=== PATIENT | male | born 1950 | race Asian ===

== ENCOUNTER 2020-04-28 19:22 | Emergency (ER) | payer MEDICARE ==
[~2020-04-28] VITALS: Ht 167.6 cm; Wt 81.7 kg
--- NOTE | ~2020-04-28 | EKG ---
[facility] [address] [facility] [address] [place], [place] [address] Draft EK completed, results pending confirmation PATIENT NAME: GONZALEZ STEVENS Electrocardiogram DATE OF : 50 PHYSICIAN: PRELIMINARY REPORT #: [id number] REPORT IS CONFIDENTIAL AND NOT TO BE RELEASED WITHOUT AUTHORIZATION
--- OUTSIDE RECORDS SUMMARY | ~2020-04-28 | XMS | Encounter Summary ---
Demographics + + + | Address | [address] | | | [place] [address] | + + + | Home Phone | | + + + | Preferred Language | Unknown | + + + | Marital Status | | + + + | Confucianism Affiliation | Unknown | + + + | Race | Unknown | + + + | Ethnic Group | Other Race | + + + Author + + + | Author | [facility] | + + + | Organization | [facility] | + + + | Address | Unknown | + + + | Phone | Unavailable | + + + Care Team Providers + +------+ + | Care Lead Game Designer Name | Role | Phone | + +------+ + PCP | Unavailable | + +------+ + Encounter Details +--------+ + + + + | Date | Type | Department | Care Team | Description | +--------+ + + + + | 11/25/ | Documentati | [facility] | Unknown . | | | 2019 | on | Department | | | +--------+ + + + + Social History + +-------+ +--------+------+ | Tobacco Use | Types | Packs/Day | Years | Date | | | | | Used | | + +-------+ +--------+------+ | Never Assessed | | | | | + +-------+ +--------+------+ + + + | Sex Assigned at | Date Recorded | | | | + + + | Not on file | | + + + + + + + | Job Start Date | Occupation | Industry | + + + + | Not on file | Not on file | Not on file | + + + + + + + + | Travel History | Travel Start | Travel End | + + + + + + | No recent travel history available. | + + documented as of this encounter Plan of Treatment Not on filedocumented as of this encounter Visit Diagnoses Not on filedocumented in this encounter"
--- OUTSIDE RECORDS SUMMARY | ~2020-04-28 | XMS | Encounter Summary ---
Demographics + + + | Address | [address] | | | [place] [address] | + + + | Home Phone | | + + + | Preferred Language | Unknown | + + + | Marital Status | | + + + | Pentecostal Affiliation | Unknown | + + + | Race | Unknown | + + + | Ethnic Group | Other Race | + + + Author + + + | Author | [facility] | + + + | Organization | [facility] | + + + | Address | Unknown | + + + | Phone | Unavailable | + + + Care Team Providers + +------+ + | Care Utilities Operator Name | Role | Phone | + +------+ + PCP | Unavailable | + +------+ + Encounter Details +--------+ + + + + | Date | Type | Department | Care Team | Description | +--------+ + + + + | 01/01/ | Documentati | Dermatology | Unknown . | | | 2017 | on | Medical at [facility] | | | | | | [facility] | | | | | | for Health and | | | | | | Healing, [address], | | | | | | 16th Floor | | | | | | [place], [place] | | | | | | [address] | | | | | | [phone] | | | +--------+ + + + [...]
--- OUTSIDE RECORDS SUMMARY | ~2020-04-28 | XMS | Clinical Summary ---
Demographics + + + | Address | [address] | | | [place] [address] | + + + | Home Phone | | + + + | Preferred Language | Unknown | + + + | Marital Status | | + + + | Gnosticist Affiliation | Unknown | + + + | Race | Unknown | + + + | Ethnic Group | Other Race | + + + Author + + + | Author | [facility] | + + + | Organization | [facility] | + + + | Address | Unknown | + + + | Phone | Unavailable | + + + Care Team Providers + +------+ + | Care Baseball Inspector And Repairer Name | Role | Phone | + +------+ + PCP | Unavailable | + +------+ + Source Comments JOSE is fully live on both [facility] Ambulatory and [facility] InPatient.[facility] Allergies Not on File Medications Not on file Active Problems Not on file Social History + +-------+ +--------+------+ | Tobacco [...] recent travel history available. | + + Last Filed Vital Signs Not on file Plan of Treatment Not on file Results Not on filefrom Last 3 Months Insurance + +--------+ +--------+ + +--------+ | Payer | Benefi | Subscriber | Effect | Phone | Address | Type | | | t Plan | ID | trini | | | | | | / | | Dates | | | | | | Group | | | | | | + +--------+ +--------+ + +--------+ | MEDICARE | MEDICA | xxxxxxxxxxx | 05/17/20 | [phone] | [address] | Medica | | | RE A & | | 15-Pre | 1 | [phone] | re | | | B | | sent | | [place] | | | | | | | | [address] | | + +--------+ +--------+ + +--------+ | [employer] | AARP | xxxxxxxxxxx | Effect | [phone] | [address] | Indemn | | RETIRED PEOPLE | | | trini | 9 | [phone] | ity | | | | | for | | [place] | | | | | | all | | [phone] | | | | | | dates | | | | + +--------+ +--------+ + +--------+ + +--------+ +--------+ + + | Guarantor Name | Accoun | Relation to | Date | Phone | Billing Address | | | t Type | Patient | of | | | | | | | | | | + +--------+ +--------+ + + | Kelvin Tovar T | Person | Self | [birth year] | [address] | | | al/Fam | | 1950 | [phone] | [place] | | | ozzy | | | 1 (Home) | [address] | + +--------+ +--------+ + +"
--- OUTSIDE RECORDS SUMMARY | ~2020-04-28 | XMS | Encounter Summary ---
Demographics + + + | Address | [address] | | | [place] [address] | + + + | Home Phone | | + + + | Preferred Language | Unknown | + + + | Marital Status | | + + + | Buddhism Affiliation | Unknown | + + + | Race | Unknown | + + + | Ethnic Group | Other Race | + + + Author + + + | Author | [facility] | + + + | Organization | [facility] | + + + | Address | Unknown | + + + | Phone | Unavailable | + + + Care Team Providers + +------+ + | Care Evaporator Name | Role | Phone | + +------+ + PCP | Unavailable | + +------+ + Encounter Details +--------+ + + + + | Date | Type | Department | Care Team | Description | +--------+ + + + + | 08/14/ | Hospital | Dermatopathology | | | | 2016 | Encounter | [address] | | | | | | Mailcode: CH16D | | | | | | [facility] | | | | | | and Healing, | | | | | | [address], [address]th | | | | | | Floor [place], [place] | | | | | | [address] | | | | | | [phone] | | | +--------+ + + + [...] Not on filedocumented as of this encounter Procedures + +--------+ + + + | Procedure Name | Priori | Date/Time | Associated Diagnosis | Comments | | | ty | | | | + +--------+ + + + | DERM PATHOLOGY | Routin | 08/14/2016 | Melanocytic nevi | Results for this | | | e | | of left upper limb, | procedure are in the | | | | | including shoulder | results section. | + +--------+ + + + documented in this encounter Results DERM PATHOLOGY (08/14/2016) + + + + + + | Component | Value | Ref Range | Performed | Pathologist | | | | | At | Signature | + + + + + + | DERMATOPATH | SOURCE OF SPECIMEN:A Lt. | | [facility] | | | OLOGY(WET | upper arm, shave biopsy | | DERMATOPATH | | | MNT) | CLINICAL | | OLOGY | | | | DESCRIPTION:3 x 3 | | | | | | heavily pigmented | | | | | | papule; r/o dysplastic | | | | | | nevus. GROSS | | | | | | DESCRIPTION:Received in | | | | | | formalin is a specimen | | | | | | labeled Kelvin Tovar:A: | | | | | | Specimen is labeled "L | | | | | | upper arm" and consists | | | | | | of an irregular shave | | | | | | ofpatchy | | | | | | mlbms-[id number]-xdubk skin, | | | | | | 7c4p1cm. The surgical | | | | | | margin is inked | | | | | | black;the tissue is | | | | | | bisected, and entirely | | | | | | submitted in cassette | | | | | | A1. MICROSCOPIC | | | | | | DESCRIPTION:There is a | | | | | | moderately broad, | | | | | | well-circumscribed, and | | | | | | slightly | | | | | | asymmetriccompound | | | | | | melanocytic neoplasm | | | | | | characterized by round | | | | | | to oval nests and | | | | | | anincrease in single | | | | | | melanocytes distributed | | | | | | somewhat irregularly | | | | | | along thebasal layer, | | | | | | with a few single | | | | | | melanocytes extending | | | | | | focally above it.Nests | | | | | | of melanocytes are | | | | | | present in the upper | | | | | | dermis amidst a | | | | | | sparselymphocytic | | | | | | infiltrate. Most of the | | | | | | melanocytic nuclei are | | | | | | round to ovaland the | | | | | | cells contain | | | | | | amphophilic cytoplasm | | | | | | with melanin. | | | | | | DIAGNOSIS:MELANOCYTIC | | | | | | NEVUS, COMPOUND TYPE | | | | | | WITH UNUSUAL FEATURES. | | | | | | NOTE: Asymmetry | | | | | | and rare spinous layer | | | | | | melanocytes are unusual | | | | | | findings inthe left | | | | | | upper arm melanocytic | | | | | | nevus. The nevus extends | | | | | | to the deepsurgical | | | | | | margin of the shave | | | | | | specimen and in light of | | | | | | the | | | | | | unconventionalfindings | | | | | | additional conservative | | | | | | treatment to assure | | | | | | complete removal wouldbe | | | | | | prudent. My | | | | | | electronic signature | | | | | | indicates that I have | | | | | | personally reviewed | | | | | | alldiagnostic slides, | | | | | | the gross and/or | | | | | | microscopic portion of | | | | | | thisreport and | | | | | | formulated the final | | | | | | diagnosis. | | | | | | Rendering Diagnostician: | | | | | | Ronaldo Balderrama | | | | | | MJudyPathologistElectroni | | | | | | ken Signed 08/16/2016 | | | | | | 3:37PM | | | | + + + + + + + + | Specimen | + + | | + + + + + | Narrative | Performed At | + + + | | | + + + + + + + + | Performing | Address | City/State/Zipcode | Phone Number | | Organization | | | | + + + + + | [facility] | Mailcode CH5D [address] | [place] [address] | | | DERMATOPATHOLOGY | [address] | | | + + + + + | [facility] | Mailcode CH5D [address] | [place] [address] | | | DERMATOPATHOLOGY | [address] | | | + + + + + documented in this encounter Visit Diagnoses + + | Diagnosis | + + | Melanocytic nevi of left upper limb, including shoulder | + + documented in this encounter
--- OUTSIDE RECORDS SUMMARY | ~2020-04-28 | XMS | Encounter Summary ---
Demographics + + + | Address | [address] | | | [place] [address] | + + + | Home Phone | | + + + | Preferred Language | Unknown | + + + | Marital Status | | + + + | Mosque Affiliation | Unknown | + + + | Race | Unknown | + + + | Ethnic Group | Other Race | + + + Author + + + | Author | [facility] | + + + | Organization | [facility] | + + + | Address | Unknown | + + + | Phone | Unavailable | + + + Care Team Providers + +------+ + | Care Coal Hauler Operator Name | Role | Phone | + +------+ + PCP | Unavailable | + +------+ + Encounter Details +--------+ + + + + | Date | Type | Department | Care Team | Description | +--------+ + + + + | 11/14/ | Lab | Dermatopathology | Carol Ann Jaimes MD | | | 2018 | Requisition | [address] | [facility] | | | | | Mailcode: CH16D | Dermatology [address] | | | | | [facility] | [place], | | | | | and [facility], | [place] [address] | | | | | [place] [address] | [phone] | | | | | Floor [place], [place] | | | | | | [address] | | | | | | [phone] | | | +--------+ + + + [...] + | DERM PATHOLOGY | Routin | 11/13/2017 | Basal cell | Results for this | | | e | | carcinoma of skin of | procedure are in the | | | | | scalp and neck | results section. | + +--------+ + + + documented in this encounter Results DERM PATHOLOGY (11/13/2017) + + + + + + | Component | Value | Ref Range | Performed | Pathologist | | | | | At | Signature | + + + + + + | Clinical | R/o residual BCC; | | [facility] | | | History | [id number]. | | DERMATOPATH | | | | | | OLOGY | | + + + + + + | Final | SCAR.(RIGHT OCCIPITAL | | [facility] | Electronically | | Pathologic | SCALP)NOTE: No residual | | DERMATOPATH | signed by | | Diagnosis | basal cell carcinoma is | | OLOGY | Ronaldo B | | | seen in these sections; | | | MD [place] on | | | the right occipital | | | 11/15/2017 at | | | scalp basal cell | | | 2:38 PM | | | carcinoma is completely | | | | | | excised. | | | | + + + + + + | Gross | Received in formalin is | | [facility] | | | Description | a specimen labeled with | | DERMATOPATH | | | | the patient's name:A: | | OLOGY | | | | Specimen is labeled "Rt | | | | | | occipital scalp" and | | | | | | consists of an | | | | | | elliptical excision of | | | | | | torres-brown skin, 22 x 8 x | | | | | | 5 mm. The surgical | | | | | | margin is inked blue; | | | | | | the tissue is serially | | | | | | sectioned, and entirely | | | | | | submitted in cassette | | | | | | A1. | | | | + + + + + + | Microscopic | There are an increased | | [facility] | | | | number of collagen | | DERMATOPATH | | | Description | bundles with fibrocytes | | OLOGY | | | | arranged parallel to the | | | | | | skin surface with | | | | | | vertically oriented | | | | | | blood vessels. | | | | + + + + + + + + | Specimen | + + | Biopsy | + + + + + + + | Performing | Address | City/State/Zipcode | Phone Number | | Organization | | | | + + + + + | [facility] | Mailcode CH5D [address] | [place] [address] | | | DERMATOPATHOLOGY | [address] | | | + + + + + | [facility] | Mailcode CH5D [address] | [place] [address] | | | DERMATOPATHOLOGY | [address] | | | + + + + + documented in this encounter Visit Diagnoses + + | Diagnosis | + + | Basal cell carcinoma of skin of scalp and neck Basal cell carcinoma of scalp and skin | | of neck | + + documented in this encounter
--- OUTSIDE RECORDS SUMMARY | ~2020-04-28 | XMS | Encounter Summary ---
Demographics + + + | Address | [address] | | | [place] [address] | + + + | Home Phone | | + + + | Preferred Language | Unknown | + + + | Marital Status | | + + + | Faith Affiliation | Unknown | + + + | Race | Unknown | + + + | Ethnic Group | Other Race | + + + Author + + + | Author | [facility] | + + + | Organization | [facility] | + + + | Address | Unknown | + + + | Phone | Unavailable | + + + Care Team Providers + +------+ + | Care Industrial Relations Manager Name | Role | Phone | + +------+ + PCP | Unavailable | + +------+ + Encounter Details +--------+ + + + + | Date | Type | Department | Care Team | Description | +--------+ + + + + | 08/30/ | Hospital | Dermatopathology | | | | 2017 | Encounter | [address] | | | | | | Mailcode: CH16D | | | | | | [facility] | | | | | | and Healing, | | | | | | [address], [address]th | | | | | | Floor [place], [place] | | | | | | [address] | | | | | | [phone] | | | +--------+ + + + [...] + | DERM PATHOLOGY | Routin | 08/30/2017 | Other melanin | Results for this | | | e | | hyperpigmentation | procedure are in the | | | | | Basal cell carcinoma | results section. | | | | | of skin of scalp | | | | | | and neck | | + +--------+ + + + documented in this encounter Results DERM PATHOLOGY (08/30/2017) + + + + + + | Component | Value | Ref Range | Performed | Pathologist | | | | | At | Signature | + + + + + + | DERMATOPATH | SOURCE OF SPECIMEN:A Rt. | | [facility] | | | OLOGY(WET | dorsal arm, shave | | DERMATOPATH | | | MNT) | biopsySOURCE OF | | OLOGY | | | | SPECIMEN:B Rt. occipital | | | | | | scalp, shave biopsy | | | | | | CLINICAL | | | | | | DESCRIPTION:A: 3 x 4 mm | | | | | | hyperpigmented; r/o | | | | | | lentigo vs other.B: 3 x | | | | | | 3 mm pink papule; r/o | | | | | | NMSC. GROSS | | | | | | DESCRIPTION:Received in | | | | | | formalin are two | | | | | | specimens labeled Oyama, | | | | | | Kelvin:A: Specimen is | | | | | | labeled "Rt dorsal arm" | | | | | | and consists of an | | | | | | irregular shaveof | | | | | | papular patchy | | | | | | gyrnu-rdx-mdhqr skin, | | | | | | [id number]. The surgical | | | | | | margin isinked blue; the | | | | | | tissue is bisected, and | | | | | | entirely submitted in | | | | | | cassette A1.B: Specimen | | | | | | is labeled "Rt occipital | | | | | | scalp" and consists of | | | | | | an irregularshave of | | | | | | papular white-torres skin, | | | | | | [id number]. The surgical | | | | | | margin is inkedblue; the | | | | | | tissue is bisected, and | | | | | | entirely submitted in | | | | | | cassette B1. | | | | | | MICROSCOPIC | | | | | | DESCRIPTION:In the right | | | | | | dorsal arm, shave | | | | | | biopsy there is slight | | | | | | hyperplasia of therete | | | | | | ridges with | | | | | | hyperpigmentation along | | | | | | the basal layer and | | | | | | solarelastosis. | | | | | | Immunohistochemical | | | | | | staining for melan-A is | | | | | | obtained and showsno | | | | | | melanocytic neoplasm. | | | | | | In the right | | | | | | occipital scalp, shave | | | | | | biopsy there are | | | | | | aggregates of cellswith | | | | | | hyperchromatic nuclei, | | | | | | scant cytoplasm and | | | | | | palisading of | | | | | | theperipheral nuclei. | | | | | | DIAGNOSIS:A: SOLAR | | | | | | LENTIGO.(RIGHT DORSAL | | | | | | ARM) NOTE: No | | | | | | definitive melanocytic | | | | | | neoplasm is seen in | | | | | | these sections. B: | | | | | | BASAL CELL CARCINOMA, | | | | | | NODULAR PATTERN.(RIGHT | | | | | | OCCIPITAL SCALP) | | | | | | NOTE: The right | | | | | | occipital scalp BASAL | | | | | | CELL CARCINOMA extends | | | | | | to the deepsurgical | | | | | | margin of the shave | | | | | | specimen and additional | | | | | | treatment to | | | | | | ensurecomplete removal | | | | | | would be prudent. | | | | | | VBK:jb09/04/17 My | | | | | | [...] diagnosis. | | | | | | Electronically signed | | | | | | by: Ronaldo Balderrama | | | | | | M.EmiliePathologistDate | | | | | | Completed: 09/05/2017 | | | | | | 12:58PM | | | | + + + [...] + + + + | [facility] | [address] | [place] [address] | | | DERMATOPATHOLOGY | [address] | | | + + + + + | [facility] | [address] | [place] [address] | | | DERMATOPATHOLOGY | [address] | | | + + + + + documented in this encounter Visit Diagnoses + + | Diagnosis | + + | Other melanin hyperpigmentation | + + | Basal cell carcinoma of skin of scalp and neck Basal cell carcinoma of scalp and skin | | of neck | + + documented in this encounter
--- OUTSIDE RECORDS SUMMARY | ~2020-04-28 | XMS | Encounter Summary ---
Demographics + + + | Address | [address] | | | [place] [address] | + + + | Home Phone | | + + + | Preferred Language | Unknown | + + + | Marital Status | | + + + | Mormon Affiliation | Unknown | + + + | Race | Unknown | + + + | Ethnic Group | Other Race | + + + Author + + + | Author | [facility] | + + + | Organization | [facility] | + + + | Address | Unknown | + + + | Phone | Unavailable | + + + Care Team Providers + +------+ + | Care Wire Drawer Name | Role | Phone | + [...]
--- OUTSIDE RECORDS SUMMARY | ~2020-04-28 | XMS | Encounter Summary ---
Demographics + + + | Address | [address] | | | [place] [address] | + + + | Home Phone | | + + + | Preferred Language | Unknown | + + + | Marital Status | | + + + | Samaritan Affiliation | Unknown | + + + | Race | Unknown | + + + | Ethnic Group | Other Race | + + + Author + + + | Author | [facility] | + + + | Organization | [facility] | + + + | Address | Unknown | + + + | Phone | Unavailable | + + + Care Team Providers + +------+ + | Care Church Organist Name | Role | Phone | + +------+ + PCP | Unavailable | + +------+ + Encounter Details +--------+ + + + + | Date | Type | Department | Care Team | Description | +--------+ + + + + | 11/14/ | Lab | Dermatopathology | Carol Ann Jaimes MD | | | 2018 | Requisition | [address] | [facility] | | | | | Mailcode: CH16D | Dermatology [address] | | | | | [facility] | [place] [place], | | | | | and [facility], | [place] [address] | | | | | [place] [address] | [phone] | | | | | Floor [place], [place] | | | | | | [address] | | | | | | [phone] | | | +--------+ + + + [...] | [facility] | | | History | [id number]. | | DERMATOPATH | | | | [...] [facility] | Mailcode CH5D [address] | [place] [address] | | | DERMATOPATHOLOGY | [address] | | | + + + + + | [facility] | Mailcode CH5D [address] | [place] [address] | | | DERMATOPATHOLOGY | [address] | | | + + + + + documented in this encounter Visit Diagnoses + + | Diagnosis | + + | Basal cell carcinoma of skin of scalp and neck Basal cell carcinoma of scalp and skin | | of neck | + + documented in this encounter
--- OUTSIDE RECORDS SUMMARY | ~2020-04-28 | XMS | Clinical Summary ---
Demographics + + + | Address | [address] | | | [place] [address] | + + + | Home Phone | | + + + | Preferred Language | Unknown | + + + | Marital Status | | + + + | Yazidism Affiliation | Unknown | + + + | Race | Unknown | + + + | Ethnic Group | Other Race | + + + Author + + + | Author | [facility] | + + + | Organization | [facility] | + + + | Address | Unknown | + + + | Phone | Unavailable | + + + Care Team Providers + +------+ + | Care Automobile Travel Club Counselor Name | Role | Phone | + +------+ + PCP | Unavailable | + +------+ + Source Comments JOSE is fully live on both [facility] Ambulatory and [facility] InPatient.[facility] Allergies Not on File Medications Not on [...] | | | | | | | [address] | | + +--------+ +--------+ + +--------+ | [employer] | AARP | xxxxxxxxxxx | Effect | [phone] | [address] | Indemn | | RETIRED PEOPLE | | | trini | 9 | [phone] | ity | | | | | for | | [place] | | | | | | all | | [phone] | | | | | | dates [...] ozzy | | | 1 (Home) | [address] | + +--------+ +--------+ + +"
--- OUTSIDE RECORDS SUMMARY | ~2020-04-28 | XMS | Encounter Summary ---
Demographics + + + | Address | [address] | | | [place] [address] | + + + | Home Phone | | + + + | Preferred Language | Unknown | + + + | Marital Status | | + + + | Christianity Affiliation | Unknown | + + + [...] Team Providers + +------+ + | Care Adult Specialist Name | Role | Phone | + [...] CH16D | | | | | | [facility] | | | | | | and Healing, | | | | | | [address], [address] | | | | | | Floor [place], [place] | | | | | | [address] | | | | | | [phone] | | | +--------+ + + + [...] ofpatchy | | | | | | [id number] skin, | | | | | | [id number]. The surgical | | | | | [...] [facility] | Mailcode CH[address]D [address] | [place] [address] | | | DERMATOPATHOLOGY | [address] | | | + + + + + | [facility] | Mailcode CH[address]D [address] | [place] [address] | | | DERMATOPATHOLOGY | [address] | | | + + + + + documented in this encounter Visit Diagnoses + + | Diagnosis | + + | Melanocytic nevi of left upper limb, including shoulder | + + documented in this encounter
--- OUTSIDE RECORDS SUMMARY | ~2020-04-28 | XMS | Encounter Summary ---
Demographics + + + | Address | [address] | | | [place] [address] | + + + | Home Phone | | + + + | Preferred Language | Unknown | + + + | Marital Status | | + + + | Hoahaoism Affiliation | Unknown | + + + | Race | Unknown | + + + | Ethnic Group | Other Race | + + + Author + + + | Author | [facility] | + + + | Organization | [facility] | + + + | Address | Unknown | + + + | Phone | Unavailable | + + + Care Team Providers + +------+ + | Care Resource Economist Name | Role | Phone | + [...] CH16D | | | | | | [facility] | | | | | | and Healing, | | | | | | [address] | | | | | | Floor [place], [place] | | | | | | [address] | | | | | | [phone] | | | +--------+ + + + [...] patchy | | | | | | [id number]-[id number] skin, | | | | | | [id number]. The surgical | | | | | [...] skin, | | | | | | [id number]. The surgical | | | | | [...] | | | | | | by: oRnaldo Balderrama | | | | | | [...] [facility] | [address] | [place] [address] | | | DERMATOPATHOLOGY | [address] | | | + + + + + | [facility] | [address] | [place] [address] | | | DERMATOPATHOLOGY | [address] [...]
--- OUTSIDE RECORDS SUMMARY | ~2020-04-28 | XMS | Encounter Summary ---
Demographics + + + | Address | [address] | | | [place] [address] | + + + | Home Phone | | + + + | Preferred Language | Unknown | + + + | Marital Status | | + + + | Voodoo Affiliation | Unknown | + + + | Race | Unknown | + + + | Ethnic Group | Other Race | + + + Author + + + | Author | [facility] | + + + | Organization | [facility] | + + + | Address | Unknown | + + + | Phone | Unavailable | + + + Care Team Providers + +------+ + | Care Clinical Data Associate Name | Role | Phone | + +------+ + PCP | Unavailable | + +------+ + Encounter Details +--------+ + + + + | Date | Type | Department | Care Team | Description | +--------+ + + + + | 08/29/ | Hospital | Dermatopathology | | | | 2016 | Encounter | [address] | | | | | | Mailcode: CH16D | | | | | | [facility] | | | | | | and Healing, | | | | | | [address] | | | | | | Floor [place], [place] | | | | | | [address] | | | | | | [phone] | | | +--------+ + + + [...] + | DERM PATHOLOGY | Routin | 08/29/2016 | Scar conditions | Results for this | | | e | | and fibrosis of skin | procedure are in the | | | | | | results section. | + +--------+ + + + documented in this encounter Results DERM PATHOLOGY (08/29/2016) + + + + + + | Component | Value | Ref Range | Performed | Pathologist | | | | | At | Signature | + + + + + + | DERMATOPATH | SOURCE OF SPECIMEN:A Lt. | | [facility] | | | OLOGY(WET | upper arm, biopsy | | DERMATOPATH | | | MNT) | CLINICAL | | OLOGY | | | | DESCRIPTION:R/O residual | | | | | | melanocytic nevus, | | | | | | compound type with | | | | | | unusual | | | | | | features.[id number] | | | | | | GROSS | | | | | | DESCRIPTION:Received in | | | | | | formalin is a specimen | | | | | | labeled Kelvin Tovar:A: | | | | | | Specimen is labeled "L | | | | | | upper arn" and consists | | | | | | of a 6mm punch of | | | | | | tanskin, cut to a depth | | | | | | of 5mm. The surgical | | | | | | margin is inked black; | | | | | | the tissueis bisected; | | | | | | and entirely submitted | | | | | | in cassette A1. | | | | | | MICROSCOPIC | | | | | | DESCRIPTION:There are an | | | | | | increased number of | | | | | | collagen bundles with | | | | | | fibrocytes | | | | | | arrangedparallel to the | | | | | | skin surface with | | | | | | vertically oriented | | | | | | blood vessels. | | | | | | DIAGNOSIS:SCAR, WITH NO | | | | | | RESIDUUM IDENTIFIED. | | | | | | NOTE: No residual | | | | | | melanocytic nevus with | | | | | | unusual features is | | | | | | identified. 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
--- OUTSIDE RECORDS SUMMARY | ~2020-04-28 | XMS | Encounter Summary ---
Demographics + + + | Address | [address] | | | [place] [address] | + + + | Home Phone | | + + + | Preferred Language | Unknown | + + + | Marital Status | | + + + | Pentecostalism Affiliation | Unknown | + + + | Race | Unknown | + + + | Ethnic Group | Other Race | + + + Author + + + | Author | [facility] | + + + | Organization | [facility] | + + + | Address | Unknown | + + + | Phone | Unavailable | + + + Care Team Providers + +------+ + | Care Manager Production Name | Role | Phone | + +------+ + PCP | Unavailable | + +------+ + Encounter Details +--------+ + + + + | Date | Type | Department | Care Team | Description | +--------+ + + + + | 12/28/ | Documentati | Dermatology | Unknown . | | | 2017 | on | Medical at [facility] [address] | | | | | | [facility] | | | | | | for Health and | | | | | | Healing, [address], | | | | | | [address]th Floor | | | | | | [place], [place] | | | | | | [address] | | | | | | [phone] | | | +--------+ + + + [...]
--- OUTSIDE RECORDS SUMMARY | ~2020-04-28 | XMS | Encounter Summary ---
Demographics + + + | Address | [address] | | | [place] [address] | + + + | Home Phone | | + + + | Preferred Language | Unknown | + + + | Marital Status | | + + + | Restorationism Affiliation | Unknown | + + + | Race | Unknown | + + + | Ethnic Group | Other Race | + + + Author + + + | Author | [facility] | + + + | Organization | [facility] | + + + | Address | Unknown | + + + | Phone | Unavailable | + + + Care Team Providers + +------+ + | Care Associate Attorney Name | Role | Phone | + [...] [facility]16[address] | | | | | | [facility] | | | | | | and Healing, | | | | | | [address], [address] | | | | | | Floor [place], [place] | | | | | | [address] | | | | | | [phone] | | | +--------+ + + + [...] unusual | | | | | | features.[id number] | | | | | | GROSS [...] [facility] | Mailcode [address] | [place] [address] | | | DERMATOPATHOLOGY | [address] | | | + + + + + | [facility] | Mailcode CH[address] | [place] [address] | | | DERMATOPATHOLOGY | [address] | | | + + + + + documented in this encounter Visit Diagnoses + + | Diagnosis | + + | 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
--- OUTSIDE RECORDS SUMMARY | ~2020-04-28 | XMS | Encounter Summary ---
Demographics + + + | Address | [address] | | | [place] [address] | + + + | Home Phone | | + + + | Preferred Language | Unknown | + + + | Marital Status | | + + + | Worship Affiliation | Unknown | + + + | Race | Unknown | + + + | Ethnic Group | Other Race | + + + Author + + + | Author | [facility] | + + + | Organization | [facility] | + + + | Address | Unknown | + + + | Phone | Unavailable | + + + Care Team Providers + +------+ + | Care Dry Kiln Burner Name | Role | Phone | + +------+ + PCP | Unavailable | + +------+ + Encounter Details +--------+ + + + + | Date | Type | Department | Care Team | Description | +--------+ + + + + | 01/01/ | Documentati | Dermatology | Unknown . | | | 2017 | on | Medical at [facility] [address] | | | | | | [facility] | | | | | | for Health and | | | | | | Healing, [address], | | | | | | [address]th Floor | | | | | | [place], [place] | | | | | | [address] | | | | | | [phone] | | | +--------+ + + + [...]
--- OUTSIDE RECORDS SUMMARY | ~2020-04-28 | XMS | Encounter Summary ---
Demographics + + + | Address | [address] | | | [place] [address] | + + + | Home Phone | | + + + | Preferred Language | Unknown | + + + | Marital Status | | + + + | Anglican Affiliation | Unknown | + + + | Race | Unknown | + + + | Ethnic Group | Other Race | + + + Author + + + | Author | [facility] | + + + | Organization | [facility] | + + + | Address | Unknown | + + + | Phone | Unavailable | + + + Care Team Providers + +------+ + | Care Heavy Truck Driver Name | Role | Phone | + +------+ + PCP | Unavailable | + +------+ + Encounter Details +--------+ + + + + | Date | Type | Department | Care Team | Description | +--------+ + + + + | 12/28/ | Documentati | Dermatology | Unknown . | | | 2017 | on | Medical at [facility] [address] | | | | | | [facility] | | | | | | for Health and | | | | | | Healing, [address], | | | | | | [address]th Floor | | | | | | [place], [place] | | | | | | [address] | | | | | | [phone] | | | +--------+ + + + [...]
[2020-04-28] MEDS ORDERED: HYDROCHLOROTH12.5 MG PO (19:32)
[2020-04-28] MEDS ORDERED: OMEPRAZOLE20 MG PO (19:33)
[2020-04-28] MEDS ORDERED: SIMVASTATIN40 MG PO (19:33)
[2020-04-28] MEDS ORDERED: SUMATRIPTAN SUC50 MG PO (19:33)
[2020-04-28] MEDS ORDERED: LOSARTAN POTASS50 MG PO (19:33)
--- NOTE | 2020-04-30 17:21 | EKG ---
[facility] [address] [facility] [place] [address] Signed Normal sinus rhythm Left axis deviation Abnormal ECG When compared with ECG of 28-APR-2020 19:30, (Unconfirmed) Sinus rhythm has replaced Ectopic atrial rhythm Questionable change in QRS axis Confirmed by LATONYA DEMPSEY DO ([id number]) on 04/30/2020 5:21:23 PM Electronically Signed By: LATONYA DEMPSEY DO 04/30/20 1721 PATIENT NAME: GONZALEZ STEVENS Electrocardiogram DATE OF : 50 PHYSICIAN: LATONYA DEMPSEY DO REPORT #: [id number] REPORT IS CONFIDENTIAL AND NOT TO BE RELEASED WITHOUT AUTHORIZATION
== END 2020-04-28 22:08 | disposition home or self-care (01) ==
LOC: ED 19:22
DX: R07.89 Other chest pain (principal); K21.9 Gastro-esophageal reflux disease without esophagitis; I10 Essential (primary) hypertension; Z79.899 Other long term (current) drug therapy
CPT/HCPCS: 71045; 80053; 83735; 84484; 85025; 93005; 93010; 99285-25

== ENCOUNTER 2022-08-03 23:55 | Emergency (ER) | payer MEDICARE ==
[~2022-08-03] VITALS: Ht 167.6 cm; Wt 85.5 kg
[~2022-08-03 23:55] MED LIST: HYDROCHLOROTH12.5 MG PO; LOSARTAN POTASS50 MG PO; OMEPRAZOLE20 MG PO; SIMVASTATIN40 MG PO; SUMATRIPTAN SUC50 MG PO
[2022-08-04] MEDS ORDERED: LOSARTAN-HCTZ1 EAC1 PO (00:06)
--- NOTE | 2022-08-04 14:02 | EKG ---
[facility] [address] [facility] [place] [address] Signed Normal sinus rhythm Left axis deviation Minimal voltage criteria for LVH, may be normal variant ( R in aVL ) Abnormal ECG When compared with ECG of 28-APR-2020 19:37, No significant change was found Confirmed by EKTA BENJAMIN MD ([id number]) on 08/04/2022 2:02:45 PM Electronically Signed By: EKTA BENJAMIN MD 08/04/22 1402 PATIENT NAME: GONZALEZ STEVENS Electrocardiogram DATE OF : 50 PHYSICIAN: EKTA BENJAMIN MD REPORT #: [id number] REPORT IS CONFIDENTIAL AND NOT TO BE RELEASED WITHOUT AUTHORIZATION
== END 2022-08-04 01:19 | disposition home or self-care (01) ==
LOC: ED 23:55
DX: R06.02 Shortness of breath (principal); I10 Essential (primary) hypertension; K21.9 Gastro-esophageal reflux disease without esophagitis; Z88.5 Allergy status to narcotic agent; Z79.899 Other long term (current) drug therapy
CPT/HCPCS: 36415; 71045; 80053; 83735; 83880; 84484; 85025; 85379; 93005; 93010; 99285-25

== ENCOUNTER 2022-12-20 15:37 | Emergency (ER) | payer MEDICARE ==
[~2022-12-20] VITALS: Ht 167.6 cm; Wt 81.8 kg
[~2022-12-20 15:37] MED LIST changes: +LOSARTAN-HCTZ1 EAC1 PO
[2022-12-20] MEDS ORDERED: METOPROLOL SUCC25 MG PO (15:53)
[2022-12-20] MEDS ORDERED: ONDANSETRON ODT8 MG PO (18:14)
[2022-12-20] MEDS ORDERED: LOMOTIL TABLET1 EACH PO (18:14)
== END 2022-12-20 18:22 | disposition home or self-care (01) ==
LOC: ED 15:37
DX: A08.4 Viral intestinal infection, unspecified (principal); I10 Essential (primary) hypertension; Z79.899 Other long term (current) drug therapy; Z88.5 Allergy status to narcotic agent
CPT/HCPCS: 36415; 80053; 81003; 83735; 85025; 96360; 99284-25; A9270; J7030; J7040

== ENCOUNTER 2025-04-14 08:15 | Day surgery (SDC) | payer MEDICARE ==
[~2025-04-14] VITALS: Ht 165.1 cm; Wt 82.0 kg
--- NOTE | ~2025-04-14 | OR ---
[facility] [address] [place], [place] [address] Draft DATE OF OPERATION: 04/14/2025 SURGEON: Gerard Cabral DO PREOPERATIVE DIAGNOSIS: Colon cancer screening. POSTOPERATIVE DIAGNOSIS: Colon cancer screening with nonspecific colitis. PROCEDURE PERFORMED: Colonoscopy. ANESTHESIA: IV sedation. ESTIMATED BLOOD LOSS: None. DRAINS: None. COMPLICATIONS: None. DESCRIPTION OF PROCEDURE: The patient was brought to the GI lab and placed in the supine position. After induction of IV sedation, the patient was then placed in the left lateral position and padded to the satisfaction of anesthesia. Digital rectal exam was then carried out. No enlarged prostate, no other masses noted in the rectum. The Olympus video colonoscope was then introduced into the rectum and while insufflating under direct visualization, the scope was then advanced through the rectosigmoid, sigmoid colon, descending colon, transverse colon, into the ascending colon and cecum. This colon was then fully insufflated and mucosal exploration was then carried out. No intrinsic or extrinsic masses. No lesions or ulcerations were noted in the cecum or ascending colon. The scope was brought back past the hepatic flexure and transverse colon. No intrinsic or extrinsic masses. No lesions or ulcerations were noted. The scope was brought back past the splenic flexure to the descending colon, some nonspecific colitis was noted with no lesions or ulceration were noted. No intrinsic or extrinsic masses were appreciated. The scope was then withdrawn into the sigmoid colon. Nonspecific colitis PATIENT NAME: GONZALEZ STEVENS JUSTINYAASANGEETA OPERATIVE REPORT DATE OF : 50 REPORT #: [id number] PHYSICIAN: GERARD CABRAL DO PCP: MEJIA TORRES MD REPORT IS CONFIDENTIAL AND NOT TO BE RELEASED WITHOUT AUTHORIZATION [address] [place] [address] Draft was noted, but no other intrinsic or extrinsic masses, lesions or ulcerations were appreciated. The scope was brought back into the rectosigmoid. No intrinsic or extrinsic masses were noted. Some mild nonspecific colitis was present. The scope was then withdrawn. The patient tolerated the procedure well, went to recovery room in satisfactory condition. Gerard Cabral DO RS/IAINL /[id number] Copies: ~ PATIENT NAME: GONZALEZ STEVENS OPERATIVE REPORT DATE OF : 50 REPORT #: [id number] PHYSICIAN: GERARD CABRAL DO PCP: MEJIA TORRES MD REPORT IS CONFIDENTIAL AND NOT TO BE RELEASED WITHOUT AUTHORIZATION
[~2025-04-14 08:15] MED LIST changes: +IBLOOD GLUCOSE TEST STRIP 1 EA TEST VI PRN; +LACTATED RINGER'S 1,000 ML IV SCH; +LIDOCAINE HCL 1% 5 ML SDV INJ ONE; +LOMOTIL TABLET1 EACH PO; +MACULAR HEALTH1 EACH PO; +METOPROLOL SUCC25 MG PO; +MULTI VITAMIN1 EACH PO; +ONDANSETRON ODT8 MG PO
[2025-04-14 08:25] VITALS: BP 133/53
[2025-04-14] MEDS ORDERED: LIDOCAINE HCL 2% 5 ML SDV ONE (09:28)
[2025-04-14 11:02] VITALS: BP 121/54
--- NOTE | 2025-04-14 11:32 | NUR ---
04/14/25 1132 Sheets,Jada 1040 PT ARRIVED TO PACU ON 6L VIA MASK, PT ASLEEP AND VSS. RESP EVEN AND UNLABORED. 1053 PT WAKES TO TACTILE STIMULI AND O2 MASK REMOVED. 1058 PT ROLLED TO BACK AND HOB INCREASED. PT REPORTS SMALL AMOUNT OF DIZZINESS. PT SIPPING SODA. GLASSES GIVEN. DC INSTRUCTIONS GIVEN. 1117 PT REPORTS DIZZINESS IS GONE AND PT DRESSES HIMSELF. DC PAPERWORK GIVEN AND PT DC FROM DEPARTMENT VIA WC TO .
== END 2025-04-14 11:17 | disposition home or self-care (01) ==
LOC: DS 08:15
PROVIDERS: ATTEND Surgery
PROC: 0DJD8ZZ Inspection of Lower Intestinal Tract, Via Natural or Artificial Opening Endoscopic (ICD-10-PCS; principal; 2025-04-14 09:40)
DX: Z12.11 Encounter for screening for malignant neoplasm of colon (principal); K52.9 Noninfective gastroenteritis and colitis, unspecified; I10 Essential (primary) hypertension; K21.9 Gastro-esophageal reflux disease without esophagitis; Z79.899 Other long term (current) drug therapy; Z88.5 Allergy status to narcotic agent
CPT/HCPCS: 00812; J2003; J2704; J7121